=== PATIENT | female | born 1970 | race African-American/Black ===

== ENCOUNTER 2017-01-22 10:21 | Emergency (ER) | payer OTHER ==
[~2017-01-22] VITALS: Ht 157.5 cm; Wt 65.9 kg
[2017-01-22 13:08] VITALS: BP 123/76
== END 2017-01-22 13:10 | disposition home or self-care (01) ==
LOC: EMS 10:23
DX: S29.9XXA Unspecified injury of thorax, initial encounter (principal); M54.6 Pain in thoracic spine; V43.52XA Car driver injured in collision with other type car in traffic accident, initial encounter; Y93.89 Activity, other specified; Y92.89 Other specified places as the place of occurrence of the external cause; Y99.8 Other external cause status
CPT/HCPCS: 99283

== ENCOUNTER 2017-02-20 13:33 | Emergency (ER) | payer OTHER ==
[~2017-02-20] VITALS: Ht 157.5 cm; Wt 63.6 kg
[2017-02-20] MEDS ORDERED: CEFTAROLINE 600 MG/D5W 250 ML IV ONE (14:30)
[2017-02-20] MEDS ORDERED: PERTUSS(ACELL),DIPH,TET VAC/PF 0.5 ML VIAL IM ONE (14:30)
[2017-02-20 15:01] VITALS: BP 132/70
== END 2017-02-20 15:16 | disposition home or self-care (01) ==
LOC: EMS 13:35
DX: L03.113 Cellulitis of right upper limb (principal); G40.909 Epilepsy, unspecified, not intractable, without status epilepticus; R01.1 Cardiac murmur, unspecified
CPT/HCPCS: 99283